=== PATIENT | female | born 1980 | race Caucasian/White ===

== ENCOUNTER 2018-12-30 18:12 | Inpatient (IN) | payer MEDICAID, OTHER ==
[~2018-12-30] VITALS: Ht 152.4 cm; Wt 79.0 kg
[~2018-12-30 18:12] MED LIST: FER325 PO
[2018-12-30 18:13] VITALS: Ht 152.4 cm; Wt 79.0 kg
[2018-12-30] MEDS ORDERED: ACETAMINOPHEN 500 MG TAB PO STA (21:02)
--- NOTE | 2018-12-30 21:11 | ERD ---
ER Documentation Chief Complaint Chief Complaint vag bleed since 12/13/18, pale, HPI 38-year-old female with history of heavy vaginal bleeding over the past several months. Has tried OCP with no alleviation of symptoms. Over the past 2 days patient's been going through approximately 9 pads per day also with mild lower abdominal pain. No nausea or vomiting. Did endorse a fever today but no URI symptoms. Denies any vaginal discharge. No diarrhea. No recent antibiotics. Patient feels weak as if she is going to pass out. No shortness of breath no chest pain. Patient does not have a history of transfusion. Patient that she had an ultrasound 2 weeks ago at an outside hospital which was negative per with the doctor told her. ROS All systems reviewed and are negative except as per history of present illness. Allergies Allergies: Coded Allergies: No Known Allergy (Unverified , 12/30/18) PMhx/Soc Medical and Surgical Hx: pt denies Medical Hx, pt denies Surgical Hx Hx Alcohol Use: No Hx Substance Use: No Hx Tobacco Use: No Smoking Status: Never smoker Physical Exam Vitals Vital Signs Date Temp Pulse Resp B/P (MAP) Pulse Ox O2 O2 Flow FiO2 Time Delivery Rate 12/30/18 102.2 139 22 117/76 100 Room Air 18:29 (90) 12/30/18 Nasal 18:29 Cannula 12/30/18 102.2 154 22 102/55 100 18:13 (71) Physical Exam Const: No acute distress Head: Atraumatic Eyes: Normal Conjunctiva ENT: Normal External Ears, Nose and Mouth. Neck: Full range of motion. No meningismus. Resp: Clear to auscultation bilaterally Cardio: Regular rate and rhythm, no murmurs Abd: Soft, non tender, non distended. Normal bowel sounds Skin: No petechiae or rashes Back: No midline or flank tenderness Ext: No cyanosis, or edema Neur: Awake and alert Psych: Normal Mood and Affect Pelvic Exam: Leather Stamper present Abdomen: Nontender External Genitalia: Normal Skin Speculum: Normal vaginal mucosa, normal cervical discharge small clot in cervical os no hemorrhage Bimanual: No adnexal masses or tenderness, No CMT Result Diagram: 12/30/18 1828 12/30/181827 Results 24 hrs Laboratory Tests Test 12/30/18 18:28 White Blood Count 16.5 10^3/ul Red Blood Count 1.40 10^6/ul Hemoglobin 4.1 g/dl Hematocrit 12.8 % Mean Corpuscular Volume 91.4 fl Mean Corpuscular Hemoglobin 29.3 pg Mean Corpuscular Hemoglobin Concent 32.0 g/dl Red Cell Distribution Width 17.4 % Platelet Count 218 10^3/UL Mean Platelet Volume 9.3 fl Immature Granulocytes % 1.500 % Neutrophils % % Segmented Neutrophils % (Manual) 74 % Band Neutrophils % (Manual) 2 % Lymphocytes % % Lymphocytes % (Manual) 22 % Monocytes % % Monocytes % (Manual) 1 % Eosinophils % % Basophils % % Basophils % (Manual) 1 % Nucleated Red Blood Cells % 2.6 /100WBC Immature Granulocytes # 0.240 10^3/ul Neutrophils # 10^3/ul Neutrophils # (Manual) 12.3 10^3/ul Band Neutrophils # 0.3 10^3/ul Lymphocytes (Manual) 3.6 10^3/ul Lymphocytes # 10^3/ul Monocytes # 10^3/ul Monocytes # (Manual) 0.1 10^3/ul Eosinophils # 10^3/ul Basophils # 10^3/ul Basophils # (Manual) 0.1 10^3/ul Nucleated Red Blood Cells # 10^3/ul Platelet Estimate NORMAL Polychromasia 3+ Anisocytosis 2+ Microcytosis 1+ Macrocytosis 1+ Prothrombin Time 14.4 Sec Prothrombin Time Ratio 1.1 INR International Normalized Ratio 1.11 Activated Partial Thromboplast Time 22.4 Sec Sodium Level 136 mmol/L Potassium Level 3.7 mmol/L Chloride Level 105 mmol/L Carbon Dioxide Level 24 mmol/L Anion Gap 7 Blood Urea Nitrogen 6 mg/dl Creatinine 0.65 mg/dl Est Glomerular Filtrat Rate mL/min > 60 mL/min Glucose Level 157 mg/dl Calcium Level 7.6 mg/dl Serum HCG, Qualitative NEGATIVE Procedures/MDM Patient presenting tachycardic and febrile. Normotensive. No obvious source of infection. No cervical discharge. No CMT. No URI symptoms. At this time patient is not septic given there is no great source of fever and patient's blood pressure is stable. Patient is significantly anemic hemoglobin of 4 this is likely the cause of her symptoms and her tachycardia. Patient was transfused O- and patient heart rate is appropriately responding to this. She is ultrasound also does not show any significant pathology including no evidence of infection such as tubo-ovarian abscess or PID. Patient is not . Consulted gynecology will follow the patient will admit to medicine for further work-up and transfusion. Will defer antibiotics at this time as patient is not septic and there is no source. Departure Condition: Stable CHIQUITA HARDING MD Dec 30, 2018 21:11
[2018-12-30] MEDS ORDERED: ONDANSETRON 4 MG INJ IV STA (21:14)
[2018-12-30] MEDS ORDERED: DOCUSATE SODIUM 100 MG CAP PO PRN (21:30)
[2018-12-30] MEDS ORDERED: NACL 0.9% 3 ML SYG IV SCH (21:30)
[2018-12-30] MEDS ORDERED: FUROSEMIDE 20 MG INJ IV PRN (21:30)
[2018-12-30] MEDS ORDERED: ONDANSETRON 4 MG INJ IV PRN (21:30)
[2018-12-30] MEDS ORDERED: ACETAMINOPHEN 325 MG TAB PO PRN (21:30)
[2018-12-30] MEDS ORDERED: BISACODYL (EC) 5 MG TAB PO PRN (21:30)
--- NOTE | 2018-12-30 21:40 | HP ---
Date/Time of Note Date/Time of Note DATE: 12/30/18 TIME: 21:35 Assessment/Plan VTE Prophylaxis SCD applied (from Nsg): Yes Pharmacological prophylaxis: NA/contraindicated Pharm contraindication: low risk/ambulating Lines/Catheters IV Catheter Type (from Nrsg): Saline Lock Assessment/Plan Hospital Course This is a 38-year-old female being admitted to the telemetry floor for: #1 symptomatic anemia: Secondary to vaginal bleeding. Do not have a previous baseline hemoglobin but at this time the goal will be to transfuse above 8. Patient did present tachycardic and febrile. There was no source of infection at the current time. She was ordered for 3 units of PRBC. Her heart rate has shown improvement with the blood transfusion. We will continue to monitor the patient on telemetry. Repeat CBC after her transfusions are completed. Check iron stores. Vaginal ultrasound. OB has been consulted by the emergency department. #2 systemic inflammatory response syndrome: Patient did present febrile and tachycardic. No overt source of infection has been found. This possibly could be secondary to her anemia/vaginal bleed, nonetheless I will check blood cultures x2 and check a lactic acid level for completeness sake given her temperature of 102.2. #3 vaginal bleeding: We will obtain a vaginal ultrasound to further evaluate. OB has been consulted by the ED #4 obesity: We will check hemoglobin A 1C, lipid panel, TSH #5 DVT GI prophylaxis: SCDs, no GI prophylaxis indicated Further treatment strategy will be implemented as per the clinical course. Result Diagram: 12/30/188 12/30/18 1828 Results 24hrs Laboratory Tests Test 12/30/18 18:28 White Blood Count 16.5 H Red Blood Count 1.40 L Hemoglobin 4.1 *L Hematocrit 12.8 L Mean Corpuscular Volume 91.4 Mean Corpuscular Hemoglobin 29.3 Mean Corpuscular Hemoglobin Concent 32.0 Red Cell Distribution Width 17.4 H Platelet Count 218 Mean Platelet Volume 9.3 Immature Granulocytes % 1.500 H Neutrophils % Segmented Neutrophils % (Manual) 74 Band Neutrophils % (Manual) 2 Lymphocytes % Lymphocytes % (Manual) 22 Monocytes % Monocytes % (Manual) 1 Eosinophils % Basophils % Basophils % (Manual) 1 Nucleated Red Blood Cells % 2.6 H Immature Granulocytes # 0.240 H Neutrophils # Neutrophils # (Manual) 12.3 H Band Neutrophils # 0.3 Lymphocytes (Manual) 3.6 H Lymphocytes # Monocytes # Monocytes # (Manual) 0.1 L Eosinophils # Basophils # Basophils # (Manual) 0.1 H Nucleated Red Blood Cells # Platelet Estimate NORMAL Polychromasia 3+ Anisocytosis 2+ Microcytosis 1+ Macrocytosis 1+ Prothrombin Time 14.4 Prothrombin Time Ratio 1.1 INR International Normalized Ratio 1.11 Activated Partial Thromboplast Time 22.4 L Sodium Level 136 Potassium Level 3.7 Chloride Level 105 Carbon Dioxide Level 24 Anion Gap 7 Blood Urea Nitrogen 6 L Creatinine 0.65 Est Glomerular Filtrat Rate mL/min > 60 Glucose Level 157 Calcium Level 7.6 L Serum HCG, Qualitative NEGATIVE HPI/ROS Admit Date/Time Admit Date/Time Hx of Present Illness Chief complaint: Heavy vaginal bleeding, lower abdominal pain, fever x1 day This is a 38-year-old female with a history of heavy vaginal bleeding over the last 2 months who presented to the emergency department with symptoms of abdominal pain but increased vaginal bleeding. Patient reports that over the last 2 months she started having increased vaginal bleeding. Prior to that her periods had been regular and her bleeding has been normal. She did not seek care for this and was started on OCPs but it has not helped with her bleeding. She also reports a fever that started occurring yesterday. She denies any nausea vomiting or diarrhea. She denies any cough. She did report some burning when she urinates. Denies any chest pain. She has not had a blood transfusion in the past. She also had an vaginal ultrasound at outside hospital and apparently was told that it was normal. Allergies: NKDA Medications: OCP ROS Const: As per HPI Eyes : No pain discharge or redness or change in visual acuity ENT: No pain, sore throat, congestion, congestion, dysphagia or discharge Respiratory: No shortness of breath, cough, sputum, wheezing, or pleuritic pain Cardiovascular: No chest pain, palpitation, PND, or edema GI : no change in appetite, abdominal pain, nausea, vomiting, diarrhea, constipation, or change in the color his stool Genitourinary: As per HPI Musculoskeletal: No joint pain, back pain, neck pain, restricted range of motion in neck or joints Skin: No rash, bruising or hives Neuro: No headache, dizziness, syncope, seizure, focal weakness Endocrine: No polyuria, polydipsia, temperature intolerance Psych: No hallucination, depression, anxiety or suicidal ideation PMH/Family/Social Past Medical History Medical History: no pertinent history Medications Current Medications IV Flush (NS 3 ml) 3 ml PER PROTOCOL IV ; Start 12/30/18 at 21:30 Ondansetron HCl (Zofran Inj) 4 mg Q6H PRN IV NAUSEA/VOMITING; Start 12/30/18 at 21:30 Acetaminophen (Tylenol Tab) 650 mg Q6H PRN PO .PAIN 1-3 OR TEMP; Start 12/30/18 at 21:30 Docusate Sodium (Colace) 100 mg Q12H PRN PO .CONSTIPATION; Start 12/30/18 at 21:30 Bisacodyl (Dulcolax) 5 mg DAILY PRN PO .CONSTIPATION; Start 12/30/18 at 21:30 Furosemide (Lasix) 20 mg ONCE PRN IV AFTER 2ND UNIT OF BLOOD; Start 12/30/18 at 21:30; Stop 12/31/18 at 21:29 Coded Allergies: No Known Allergy (Unverified , 12/30/18) Past Surgical History Past Surgical Hx: no surgical history Family History Significant Family History: no pertinent family hx Social History Alcohol Use: none Smoking Status: Never smoker Drug Use: none Exam/Review of Systems Vital Signs Vitals Vital Signs Date Temp Pulse Resp B/P (MAP) Pulse Ox O2 O2 Flow FiO2 Time Delivery Rate 12/30/18 102.2 139 22 117/76 100 Room Air 18:29 (90) Exam Exam General: Patient is a pleasant female currently lying in bed in no acute distress HEENT: Atraumatic, normocephalic. The pupils are equal, round and reactive. Extraocular motor are intact Neck: Supple with full range of motion. No rigidity or meningismus Chest: Nontender Lungs: Clear to auscultation bilaterally no crackles rales or wheezing Heart: Sinus tachycardia Abdomen: Soft , suprapubic tenderness to palpation, nondistended, bowel sounds are present. No guarding no rebound tenderness , No masses or organomegaly. No costovertebral temporal angle mass Extremities: Normal to inspection, no edema no cyanosis Neurologic: Normal mental status, speech normal, cranial nerves II through XII are intact, motor and sensory are intact, Additional Comments PROCEDURE: US Pelvis. CLINICAL INDICATION: Vaginal bleeding. TECHNIQUE: Multiple sonographic images of the pelvis were obtained utilizing a transabdominal technique. No transvaginal images were presented. The images were reviewed on a PACS workstation. COMPARISON: None. FINDINGS: Uterus is grossly normal in size and contour. Uterine dimensions are 10.3 x 4.6 x 6.3 cm. There is a fluid collection in the fundal endometrial canal. There is no apparent decidual reaction around the fluid collection and the shape is completely atypical for gestational sac. No adnexal masses are grossly evident. There does not appear to be any large volume of free fluid in the pelvis. The endometrium appears unremarkable with a thickness of number. The right ovary appears normal and measures 2.1 x 1.6 x 1.5 cm. Blood flow is present. The left ovary is not identified. IMPRESSION: 2. Sonographically unremarkable right ovary. 3. Nonvisualization of the left ovary. RPTAT:AAJJ Physician Annabelle Date Time Electronically viewed and signed by Physician Annabelle on 12/30/2018 20:34 GW/ CC: CHIQUITA HARDING MD [id number] ADOLFO LIMA Dec 30, 2018 21:40
[2018-12-30] MEDS ORDERED: LORAZEPAM 2 MG INJ ONE (22:23)
[2018-12-30] MEDS ORDERED: IBUPROFEN 600 MG TAB PO ONE (22:30)
[2018-12-30] MEDS ORDERED: LORAZEPAM 2 MG INJ IV ONE (22:30)
[2018-12-30] MEDS: PIPER-TAZO 3.375 GM IV (PMX) 100 ML IVPB SCH (23:28)
[2018-12-30] MEDS ORDERED: VANCOMYCIN 1.5 GM/NS 250 ML 250 ML IVPB ONE (23:30)
[2018-12-30] MEDS ORDERED: VANCOMYCIN IV PER PHARMACY XX SCH (23:30)
[2018-12-31] VITALS (17 sets, daily range): BP systolic 87–108; BP diastolic 57–81; PULSE 103–130; RESP 18–34
[2018-12-31] MEDS ORDERED: SOD CHLORIDE 0.9% 1,000 ML IV ONE (01:30)
[2018-12-31] MEDS: PIPER-TAZO 3.375 GM IV (PMX) 100 ML IVPB SCH ×3 (06:18→18:05)
[2018-12-31] MEDS ORDERED: MAGNESIUM SULFATE 1 GM/D5W 100 ML IVPB ONE (07:00)
[2018-12-31] MEDS ORDERED: SOD CHLORIDE 0.9% 500 ML IV ONE (07:00)
--- NOTE | 2018-12-31 11:39 | CONS ---
DATE OF ADMISSION: 12/31/2018 DATE OF CONSULTATION: 12/31/2018 REASON FOR CONSULTATION: Tachycardia. REQUESTING PHYSICIAN: Dr. Lima from the hospitalist service. HISTORY OF PRESENT ILLNESS: Ms. Tautm is a 38-year-old female without significant past medical history who presented with per chart 2 months and per patient 2 weeks of heavy menstrual bleeding with associated weakness, dizziness. Patient had been started on oral contraceptive pills but continued to bleed. Upon arrival, temperature of 102.2, blood pressure 102/55, pulse 154, respiratory rate 22, O2 sat 100%. The patient's labs revealed white blood cell count 16.5, hemoglobin 4.1, platelet count of 218. Sodium 136, potassium 3.7, creatinine 0.6, BUN 6. Lactic acid 2.1, INR 1.1. UA negative. The patient underwent a pelvic ultrasound revealing a thickened endometrium measuring 2.4 cm. Mild pelvic free fluid. A chest x-ray that revealed no definite acute abnormalities and abdominal pelvic CT that revealed hyperdense material illuminating the endometrial canal compatible with clot, no mass or adenopathy, coarse increased interstitial markings, right lower lobe. The patient's electrocardiogram in chart reveals sinus tachycardia, rate 111, normal axis, NSSTWA's. The patient subsequently admitted to the ICU where she remains at this time with blood pressures 80s to 90s, pulses in the 110 to 120 range, sinus tachycardia. The patient denies chest pain, shortness of breath, abdominal pain. PAST MEDICAL HISTORY: As above in HPI. MEDICATIONS CURRENTLY IN HOSPITAL: 1. Vancomycin. 2. Fish oil 1gram b.i.d. 3. Zosyn. ALLERGIES: NO KNOWN DRUG ALLERGIES. SOCIAL HISTORY: No current tobacco, ETOH or illicit drug use. FAMILY HISTORY: No history of sudden cardiac or early CAD. REVIEW OF SYSTEMS: As above in HPI. CONSTITUTIONAL: Positive fevers, chills. PULMONARY: No current shortness of breath. CARDIOVASCULAR: Tachycardia. GASTROINTESTINAL: No vomiting. GENITOURINARY: Heavy vaginal bleeding. PSYCHIATRIC: No documented psych history. NEUROLOGIC: No documented CVA. ENDOCRINE: No documented history of diabetes mellitus. PHYSICAL EXAMINATION: VITAL SIGNS: Temperature 99.5, blood pressure 95/60, pulse 116, respiratory rate 20, satting 100%. GENERAL: The patient is alert, awake, in no acute distress. NECK: No jugular venous distention. CHEST: Fair air movement throughout. HEART: Tachycardic, regular rhythm, normal S1, S2, I/ systolic murmur, nondisplaced PMI. ABDOMEN: Positive bowel sounds, soft. EXTREMITIES: No significant pitting edema, 1+ pulses bilateral posterior tibial. LABORATORY DATA: Most recent from today, sodium 138, potassium 3.7, creatinine 0.7, BUN 7, AST 15, ALT 12. LDL 6, HDL 21. White count 12.1, hemoglobin 8.3 now, platelet count of 135. IMAGING STUDIES: As above in HPI. No further imaging studies for my review at this time. ECG: As above in HPI. No further electrocardiograms for my review at this time. IMPRESSION: 1. Tachycardia consistent with sinus tachycardia at this time in the setting of fevers, severe anemia, vaginal bleeding, pain likely etiology. 2. Abnormal electrocardiogram with nonspecific ST-T abnormalities. 3. Fevers. 4. Anemia. 5. Heavy menses vaginal bleeding. 6. Leukocytosis, mild. RECOMMENDATIONS: 1. At this time, we would maintain the patient on close monitoring in ICU or tele. 2. Continue IV fluid hydration. 3. Follow the patient's hemoglobin closely with further transfusions of packed RBCs as necessary. 4. Continue the patient's broad-spectrum antibiotics and follow up all culture data. 5. Will follow up patient's 2D echo done for assessment of ejection fraction, wall motion or any major abnormalities. 6. We will check a TSH to be sure subclinical hyperthyroidism is not contributing to any bouts of tachycardia in addition to fevers and anemia, treat patient's fevers aggressively. 7. Consider [facility] consultation. Thank you for allowing me to take part in the care of this patient. I will continue to follow along very closely with you with further recommendations to be made as the patient progresses through her inpatient hospital clinical course. Dictated By: REID PADRON/NTS Conf#: [id number] DID#: [id number] CC: JADE AWAN MD; ADOLFO LIMA MD;*EndCC* MTDD
[2018-12-31] MEDS: FISH OIL 1,000 MG CAP PO SCH ×2 (12:52→21:37)
[2018-12-31] MEDS: VANCOMYCIN 1 GM 250 ML IVPB SCH (13:09)
--- NOTE | 2018-12-31 14:08 | RADRPT ---
Echocardiogram Report Patient Name: IVANNA RECIOPatient ID: [id number] : 1980 (38y 2m)Study Date: 12/31/2018 10:05:21 AM Gender: FAccession #: [id number] Tech: [facility] Location: [facility] Ref.Physician: ADOLFO LIMA Height(Cm): 160 BSA: 1.87Weight(Kg): 78.9 Quality: AdequateOrder Physician: ADOLFO LIMA Account #: Procedures: Echocardiographic Report: Transthoracic echocardiogram with complete 2D, M-Mode, and doppler examination. Indications: Tachycardia. Measurements: 2D/M Mode Doppler Measurement Value Normal Range Measurement Value Normal Range LVIDd 2D 4.7 [ 3.8 - 5.2 ] cm AV Peak Oskar 1.4 [ 100.0 - 170.0 ] cm/sec LVIDs 2D 3.3 [ 2.2 - 3.5 ] cm AV Peak PG 7.0 [ 2.0 - 9.0 ] mmHg LVPWd 2D 0.9 [ 0.6 - 0.9 ] cm LVOT Peak Oskar 1.0 [ 70.0 - 110.0 ] cm/sec IVSd 2D 0.9 [ 0.6 - 0.9 ] cm LVOT Peak PG 4.0 [ 2.0 - 6.0 ] mmHg AoR Diam 2D 3.2 [ 2.3 - 3.1 ] cm Lat E` Oskar 0.2 [ 10.0 - 15.0 ] cm/sec EF 2D 55.3 [ 54.0 - 74.0 ] percent Med E` Oskar 0.1 cm/sec LA Dimen 2D 3.6 [ 2.7 - 3.8 ] cm TR Peak Oskar 2.6 [ 100.0 - 280.0 ] cm/sec TR Peak PG 27.0 mmHg PV Peak Oskar 0.9 [ 40.0 - 80.0 ] cm/sec PV Peak PG 4.0 mmHg RVSP 30.0 [ 10.0 - 36.0 ] mmHg RA Pressure 3.0 mmHg Findings: Left Ventricle: Normal left ventricular systolic function. Normal left ventricular cavity size. Normal left ventricular wall thickness. Ejection fraction is visually estimated at 55-60 %. Tissue Doppler/Mitral Doppler indices are indeterminate in this study due to the presence of tachycardia. Right Ventricle: Normal right ventricular size. Normal right ventricular systolic function. Left Atrium: The left atrium is normal in size. Right Atrium: The right atrium is normal in size. Atrial Septum: Normal atrial septum. Mitral Valve: Normal appearance and function of the mitral valve with trace physiologic regurgitation. Aortic Valve: No significant aortic stenosis or insufficiency. Normal trileaflet aortic valve structure. Tricuspid Valve: Normal appearance of the tricuspid valve. The estimated Peak RVSP is 30 mmHg. There is mild tricuspid regurgitation. Pulmonic Valve: Normal pulmonic valve appearance. No evidence of pulmonic regurgitation. Pericardium: Normal pericardium with no significant pericardial effusion. Aorta: Normal aortic root. IVC: Normal size and normal respiratory collapse consistent with normal right atrial pressure. Pulmonary Artery: Normal pulmonary artery size. Conclusions: Normal left ventricular systolic function. Normal left ventricular cavity size. Normal left ventricular wall thickness. Ejection fraction is visually estimated at 55-60 %. Tissue Doppler/Mitral Doppler indices are indeterminate in this study due to the presence of tachycardia. Normal appearance and function of the mitral valve with trace physiologic regurgitation. Normal appearance of the tricuspid valve. The estimated Peak RVSP is 30 mmHg. There is mild tricuspid regurgitation. Electronically Signed By: Ted Hassan 2018-12-31 14:07:19 PDT
--- NOTE | 2018-12-31 14:51 | PN ---
Date/Time of Note Date/Time of Note DATE: 12/31/18 TIME: 14:47 Assessment/Plan VTE Prophylaxis SCD applied (from Nsg): Yes Pharmacological prophylaxis: NA/contraindicated Pharm contraindication: other Lines/Catheters IV Catheter Type (from Nrsg): Saline Lock Assessment/Plan Hospital Course This is a 38-year-old female being admitted to the telemetry floor for: #1 symptomatic anemia: Secondary to vaginal bleeding. Baseline unknown, transfuse to goal above 8 Status post 3 units of blood with improvement Ultrasound shows thickened and heterogeneous endometrium measuring 2.4 cm could represent blood and blood clots, increased compared with the prior study. There is mild fluid within the endometrium. Gynecology has been consulted Monitor #2 systemic inflammatory response syndrome: Patient did present febrile and tachycardic. No overt source of infection has been found. This possibly could be secondary to her anemia/vaginal bleed, nonetheless I will check blood cultures x2 and check a lactic acid level for completeness sake given her temperature of 102.2. #3 obesity: A1c 5.5, TSH normal and cholesterol is low DVT GI prophylaxis: SCDs, no GI prophylaxis indicated Result Diagram: 12/31/1851712/31/1818 Results 24hrs Laboratory Tests Test 12/30/18 18:28 12/30/18 21:41 12/30/18 22:43 12/30/18 23:23 White Blood Count 16.5 H 6.0 # Red Blood Count 1.40 L 2.72 #L Hemoglobin 4.1 *L 7.6 #L Hematocrit 12.8 L 24.0 #L Mean Corpuscular 91.4 88.2 Volume Mean Corpuscular 29.3 27.9 L Hemoglobin Mean Corpuscular 32.0 31.7 L Hemoglobin Concent Red Cell 17.4 H 15.8 H Distribution Width Platelet Count 218 158 # Mean Platelet Volume 9.3 9.1 Immature 1.500 H 1.200 H Granulocytes % Neutrophils % 80.0 H Segmented 74 Neutrophils % (Manual) Band Neutrophils % 2 (Manual) Lymphocytes % 16.6 Lymphocytes % 22 (Manual) Monocytes % 2.0 Monocytes % (Manual) 1 Eosinophils % 0.0 Basophils % 0.2 Basophils % (Manual) 1 Nucleated Red Blood 2.6 H 4.7 H Cells % Immature 0.240 H 0.070 H Granulocytes # Neutrophils # 4.8 Neutrophils # 12.3 H (Manual) Band Neutrophils # 0.3 Lymphocytes (Manual) 3.6 H Lymphocytes # 1.0 Monocytes # 0.1 L Monocytes # (Manual) 0.1 L Eosinophils # 0.0 Basophils # 0.0 Basophils # (Manual) 0.1 H Nucleated Red Blood 0.3 H Cells # Platelet Estimate NORMAL Polychromasia 3+ Anisocytosis 2+ Microcytosis 1+ Macrocytosis 1+ Prothrombin Time 14.4 Prothrombin Time 1.1 Ratio INR International 1.11 Normalized Ratio Activated 22.4 L Partial Thromboplast Time Sodium Level 136 Potassium Level 3.7 Chloride Level 105 Carbon Dioxide Level 24 Anion Gap 7 Blood Urea Nitrogen 6 L Creatinine 0.65 Est Glomerular > 60 Filtrat Rate mL/min Glucose Level 157 Calcium Level 7.6 L Serum HCG, NEGATIVE Qualitative Lactic Acid Level 2.1 *H Iron Level 17 L Total Iron Binding 316 Capacity Percent Iron 5 L Saturation Ferritin 9.0 Urine Color RED Urine Clarity CLEAR Urine pH 8.0 Urine Specific 1.011 [place] Urine Ketones NEGATIVE Urine Nitrite NEGATIVE Urine Bilirubin NEGATIVE Urine Urobilinogen NEGATIVE Urine Leukocyte NEGATIVE Esterase Urine Hemoglobin NEGATIVE Urine Glucose NEGATIVE Urine Total Protein NEGATIVE Test 12/31/18 01:01 12/31/18 05:18 12/31/18 08:00 12/31/18 11:17 Lactic Acid Level 1.1 2.0 1.1 White Blood Count 12.1 #H Red Blood Count 2.90 L Hemoglobin 8.3 L Hematocrit 25.9 L Mean Corpuscular 89.3 Volume Mean Corpuscular 28.6 L Hemoglobin Mean Corpuscular 32.0 Hemoglobin Concent Red Cell 16.1 H Distribution Width Platelet Count 135 L Mean Platelet Volume 8.8 Immature 0.700 H Granulocytes % Neutrophils % 90.9 H Lymphocytes % 7.3 L Monocytes % 0.7 Eosinophils % 0.2 Basophils % 0.2 Nucleated Red Blood 1.5 H Cells % Immature 0.090 H Granulocytes # Neutrophils # 11.0 H Lymphocytes # 0.9 Monocytes # 0.1 L Eosinophils # 0.0 Basophils # 0.0 Nucleated Red Blood 0.2 H Cells # Sodium Level 138 Potassium Level 3.7 Chloride Level 111 H Carbon Dioxide Level 21 Anion Gap 6 Blood Urea Nitrogen 7 Creatinine 0.72 Est Glomerular > 60 Filtrat Rate mL/min Glucose Level 108 # Hemoglobin A1c 5.5 Calcium Level 6.9 L Magnesium Level 1.9 Total Bilirubin 0.4 Direct Bilirubin 0.00 Indirect Bilirubin 0.4 Aspartate Amino 15 Transf (AST/SGOT) Alanine 12 L Aminotransferase (AL T/SGPT) Alkaline Phosphatase 49 Total Protein 4.6 L Albumin 2.2 L Globulin 2.40 Albumin/Globulin 0.91 Ratio Triglycerides Level 319 H Cholesterol Level 91 L LDL Cholesterol, 6 Calculated HDL Cholesterol 21 L Cholesterol/HDL 4.3 Ratio Thyroid Stimulating 3.780 3.140 Hormone (TSH) Troponin I 0.034 Test 12/31/18 14:11 Lactic Acid Level 2.9 *H Subjective 24 Hr Interval Summary Constitutional: no complaints Exam/Review of Systems Exam Vitals Vital Signs Date Temp Pulse Resp B/P (MAP) Pulse Ox O2 O2 Flow FiO2 Time Delivery Rate 12/31/18 109 23 98/61 (73) 94 Room Air 13:00 12/31/18 98.8 12:00 Constitutional: alert Respiratory: clear to auscultation Cardiovascular: regular rate and rhythm Gastrointestinal: soft; No distended Musculoskeletal: nl extremities to inspection Results Results 24hrs Laboratory Tests Test 12/30/18 18:28 12/30/18 21:41 12/30/18 22:43 12/30/18 23:23 White Blood Count 16.5 H 6.0 # Red Blood Count 1.40 L 2.72 #L Hemoglobin 4.1 *L 7.6 #L Hematocrit 12.8 L 24.0 #L Mean Corpuscular 91.4 88.2 Volume Mean Corpuscular 29.3 27.9 L Hemoglobin Mean Corpuscular 32.0 31.7 L Hemoglobin Concent Red Cell 17.4 H 15.8 H Distribution Width Platelet Count 218 158 # Mean Platelet Volume 9.3 9.1 Immature 1.500 H 1.200 H Granulocytes % Neutrophils % 80.0 H Segmented 74 Neutrophils % (Manual) Band Neutrophils % 2 (Manual) Lymphocytes % 16.6 Lymphocytes % 22 (Manual) Monocytes % 2.0 Monocytes % (Manual) 1 Eosinophils % 0.0 Basophils % 0.2 Basophils % (Manual) 1 Nucleated Red Blood 2.6 H 4.7 H Cells % Immature 0.240 H 0.070 H Granulocytes # Neutrophils # 4.8 Neutrophils # 12.3 H (Manual) Band Neutrophils # 0.3 Lymphocytes (Manual) 3.6 H Lymphocytes # 1.0 Monocytes # 0.1 L Monocytes # (Manual) 0.1 L Eosinophils # 0.0 Basophils # 0.0 Basophils # (Manual) 0.1 H Nucleated Red Blood 0.3 H Cells # Platelet Estimate NORMAL Polychromasia 3+ Anisocytosis 2+ Microcytosis 1+ Macrocytosis 1+ Prothrombin Time 14.4 Prothrombin Time 1.1 Ratio INR International 1.11 Normalized Ratio Activated 22.4 L Partial Thromboplast Time Sodium Level 136 Potassium Level 3.7 Chloride Level 105 Carbon Dioxide Level 24 Anion Gap 7 Blood Urea Nitrogen 6 L Creatinine 0.65 Est Glomerular > 60 Filtrat Rate mL/min Glucose Level 157 Calcium Level 7.6 L Serum HCG, NEGATIVE Qualitative Lactic Acid Level 2.1 *H Iron Level 17 L Total Iron Binding 316 Capacity Percent Iron 5 L Saturation Ferritin 9.0 Urine Color RED Urine Clarity CLEAR Urine pH 8.0 Urine Specific 1.011 [place] Urine Ketones NEGATIVE Urine Nitrite NEGATIVE Urine Bilirubin NEGATIVE Urine Urobilinogen NEGATIVE Urine Leukocyte NEGATIVE Esterase Urine Hemoglobin NEGATIVE Urine Glucose NEGATIVE Urine Total Protein NEGATIVE Test 12/31/18 01:01 12/31/18 05:18 12/31/18 08:00 12/31/18 11:17 Lactic Acid Level 1.1 2.0 1.1 White Blood Count 12.1 #H Red Blood Count 2.90 L Hemoglobin 8.3 L Hematocrit 25.9 L Mean Corpuscular 89.3 Volume Mean Corpuscular 28.6 L Hemoglobin Mean Corpuscular 32.0 Hemoglobin Concent Red Cell 16.1 H Distribution Width Platelet Count 135 L Mean Platelet Volume 8.8 Immature 0.700 H Granulocytes % Neutrophils % 90.9 H Lymphocytes % 7.3 L Monocytes % 0.7 Eosinophils % 0.2 Basophils % 0.2 Nucleated Red Blood 1.5 H Cells % Immature 0.090 H Granulocytes # Neutrophils # 11.0 H Lymphocytes # 0.9 Monocytes # 0.1 L Eosinophils # 0.0 Basophils # 0.0 Nucleated Red Blood 0.2 H Cells # Sodium Level 138 Potassium Level 3.7 Chloride Level 111 H Carbon Dioxide Level 21 Anion Gap 6 Blood Urea Nitrogen 7 Creatinine 0.72 Est Glomerular > 60 Filtrat Rate mL/min Glucose Level 108 # Hemoglobin A1c 5.5 Calcium Level 6.9 L Magnesium Level 1.9 Total Bilirubin 0.4 Direct Bilirubin 0.00 Indirect Bilirubin 0.4 Aspartate Amino 15 Transf (AST/SGOT) Alanine 12 L Aminotransferase (AL T/SGPT) Alkaline Phosphatase 49 Total Protein 4.6 L Albumin 2.2 L Globulin 2.40 Albumin/Globulin 0.91 Ratio Triglycerides Level 319 H Cholesterol Level 91 L LDL Cholesterol, 6 Calculated HDL Cholesterol 21 L Cholesterol/HDL 4.3 Ratio Thyroid Stimulating 3.780 3.140 Hormone (TSH) Troponin I 0.034 Test 12/31/18 14:11 Lactic Acid Level 2.9 *H Medications Medication Current Medications IV Flush (NS 3 ml) 3 ml PER PROTOCOL IV ; Start 12/30/18 at 21:30 Ondansetron HCl (Zofran Inj) 4 mg Q6H PRN IV NAUSEA/VOMITING; Start 12/30/18 at 21:30 Acetaminophen (Tylenol Tab) 650 mg Q6H PRN PO .PAIN 1-3 OR TEMP; Start 12/30/18 at 21:30 Docusate Sodium (Colace) 100 mg Q12H PRN PO .CONSTIPATION; Start 12/30/18 at 21:30 Bisacodyl (Dulcolax) 5 mg DAILY PRN PO .CONSTIPATION; Start 12/30/18 at 21:30 Furosemide (Lasix) 20 mg ONCE PRN IV AFTER 2ND UNIT OF BLOOD; Start 12/30/18 at 21:30; Stop 12/31/18 at 21:29 Vancomycin HCl (Vanco Iv Per Pharmacy) VANCOMYCIN PER PHARMACY PER PROTOCOL XX ; Start 12/30/18 at 23:30 Piperacillin Sod/ Tazobactam Sod 100 ml @ 200 mls/hr Q6 IVPB Last administered on 12/31/18at 12:53; Admin Dose 200 MLS/HR; Start 12/31/18 at 00:00 Vancomycin HCl 250 ml @ 125 mls/hr Q12H IVPB Last administered on 12/31/18at 13:09; Admin Dose 125 MLS/HR; Start 12/31/18 at 11:30 Miscellaneous Information (*Rx Drug Level Order Reminder*) VANCOMYCIN TROUGH LEVEL 1030 ONCE XX ; Start 01/01/19 at 10:30; Stop 01/01/19 at 10:31 Fish Oil (Fish Oil) 1,000 mg BID PO Last administered on 12/31/18at 12:52; Admin Dose 1,000 MG; Start 12/31/18 at 09:00 ROBE BLUE Dec 31, 2018 14:51
--- NOTE | 2018-12-31 16:12 | QN ---
Documentation Comment 38 yo with VB currently not actively bleeding She has received blood transfusion She is in ICU for observation and monitoring US thickened Endometrium Patient is not NPO HB 8 VS stable tachycardia Gen NAD Abd soft nt nD Genitalia 1-2 cc clots in vaginal vault --->Given the circumstances and the fact that she is not actively bleeding she will need a D&C&hysteroscopy when stable or as outpatient to R/op Endometrial cancer or Gyperplasia -->Any question ,please contact the paper making machine operator laborist LEILA PANCHAL M.D. Dec 31, 2018 16:12
[2019-01-01] VITALS (18 sets, daily range): BP systolic 90–113; BP diastolic 61–77; PULSE 85–120; RESP 18–27
[2019-01-01] MEDS: VANCOMYCIN 1 GM 250 ML IVPB SCH ×2 (00:17→11:57)
[2019-01-01] MEDS: PIPER-TAZO 3.375 GM IV (PMX) 100 ML IVPB SCH ×3 (00:18→11:18)
[2019-01-01] MEDS ORDERED: SOD CHLORIDE 0.9% 250 ML IV* ONE (00:35)
[2019-01-01] MEDS: FISH OIL 1,000 MG CAP PO SCH ×2 (08:37→23:47)
--- NOTE | 2019-01-01 11:06 | CONS ---
Assessment/Plan Assessment/Plan Hospital Course (Demo Recall) IMPRESSION: 1. Tachycardia consistent with sinus tachycardia at this time in the setting of fevers, severe anemia, vaginal bleeding, pain likely etiology.- currently improved s/p transfussions with IVF and treatment of fevers. Echo 12/31 EF 55- 60/MR/TR 2. Abnormal electrocardiogram with nonspecific ST-T abnormalities. 3. Fevers. 4. Anemia. 5. Heavy menses vaginal bleeding. 6. Leukocytosis, mild. Recc: -IN ICU, ok for tele -Follow [facility] -ongoing [employer] eval -Continue abx's and f/u cx data -treat fevers Consultation Date/Type/Reason Admit Date/Time Dec 31, 2018 at 06:30 Initial Consult Date 12/31/18 Type of Consult Cardiology Reason for Consultation tachycardia Requesting Provider: ADOLFO LIMA Date/Time of Note DATE: 01/01/19 TIME: 11:04 Exam/Review of Systems Vital Signs Vitals Vital Signs Date Temp Pulse Resp B/P (MAP) Pulse Ox O2 O2 Flow FiO2 Time Delivery Rate 01/01/19 106 19 104/64 100 Room Air 10:00 (77) 01/01/19 97.6 08:00 Intake and Output 12/31/18 12/31/18 01/01/19 1515:00 23:00 07:00 IntakeIntake Total 1640 ml 1210 ml 600 ml OutputOutput Total 5 ml 612 ml 700 ml BalanceBalance 1635 ml 598 ml -100 ml Exam Exam Review of Systems: CONSTITUTIONAL: No fevers, chills. PULMONARY: No sob CARDIOVASCULAR: No chest pain/palpitations GASTROINTESTINAL: No nausea/vomiting. GENITOURINARY: No hematuria/dysuria. MUSCULOSKELETAL: No myagias/arthalgias. PSYCHIATRIC: The patient denies depression. NEUROLOGIC: No weakness Constitutional: alert Psych: no complaints Head: normocephalic ENMT: mucosa pink and moist Neck: supple, jvd (8 cm water) Respiratory: clear to auscultation Cardiovascular: regular rate and rhythm Gastrointestinal: soft, non-tender Musculoskeletal: muscle tone (normal) Extremities: edema (none) Labs Result Diagram: 01/01/19 0519 01/01/19 0519 Results 24hrs Laboratory Tests Test 12/31/18 11:17 7/28/19 14:11 12/31/18 23:25 01/01/19 05:19 Troponin I 0.034 0.030 Thyroid Stimulating 3.140 Hormone (TSH) Lactic Acid Level 2.9 *H White Blood Count 8.2 # 6.9 Red Blood Count 2.68 L 3.03 L Hemoglobin 7.6 L 8.5 L Hematocrit 23.6 L 26.7 L Mean Corpuscular 88.1 88.1 Volume Mean Corpuscular 28.4 L 28.1 L Hemoglobin Mean Corpuscular 32.2 31.8 L Hemoglobin Concent Red Cell 16.4 H 16.0 H Distribution Width Platelet Count 154 147 Mean Platelet Volume 8.5 9.0 Immature 0.500 H 0.400 Granulocytes % Neutrophils % 68.6 67.9 Lymphocytes % 23.8 20.9 Monocytes % 4.9 7.8 Eosinophils % 1.7 2.6 Basophils % 0.5 0.4 Nucleated Red Blood 1.5 H 1.4 H Cells % Immature 0.040 H 0.030 Granulocytes # Neutrophils # 5.7 4.7 Lymphocytes # 2.0 1.5 Monocytes # 0.4 0.5 Eosinophils # 0.1 0.2 Basophils # 0.0 0.0 Nucleated Red Blood 0.1 H 0.1 H Cells # Sodium Level 138 Potassium Level 4.0 Chloride Level 110 Carbon Dioxide Level 26 Anion Gap 2 L Blood Urea Nitrogen 5 L Creatinine 0.73 Est Glomerular > 60 Filtrat Rate mL/min Glucose Level 101 Calcium Level 7.5 L Total Bilirubin 0.4 Direct Bilirubin 0.00 Indirect Bilirubin 0.4 Aspartate Amino 16 Transf (AST/SGOT) Alanine 24 Aminotransferase (AL T/SGPT) Alkaline Phosphatase 55 Total Protein 4.5 L Albumin 2.2 L Globulin 2.30 Albumin/Globulin 0.95 Ratio Medications Medications Current Medications IV Flush (NS 3 ml) 3 ml PER PROTOCOL IV ; Start 12/30/18 at 21:30 Ondansetron HCl (Zofran Inj) 4 mg Q6H PRN IV NAUSEA/VOMITING; Start 12/30/18 at 21:30 Acetaminophen (Tylenol Tab) 650 mg Q6H PRN PO .PAIN 1-3 OR TEMP; Start 12/30/18 at 21:30 Docusate Sodium (Colace) 100 mg Q12H PRN PO .CONSTIPATION; Start 12/30/18 at 21:30 Bisacodyl (Dulcolax) 5 mg DAILY PRN PO .CONSTIPATION; Start 12/30/18 at 21:30 Vancomycin HCl (Vanco Iv Per Pharmacy) VANCOMYCIN PER PHARMACY PER PROTOCOL XX ; Start 12/30/18 at 23:30 Piperacillin Sod/ Tazobactam Sod 100 ml @ 200 mls/hr Q6 IVPB Last administered on 01/01/19at 05:23; Admin Dose 200 MLS/HR; Start 12/31/18 at 00:00 Vancomycin HCl 250 ml @ 125 mls/hr Q12H IVPB Last administered on 01/01/19at 00:17; Admin Dose 125 MLS/HR; Start 12/31/18 at 11:30 Fish Oil (Fish Oil) 1,000 mg BID PO Last administered on 01/01/19at 08:37; Admin Dose 1,000 MG; Start 12/31/18 at 09:00 REID REYNOLDS Jan 01, 2019 11:06
--- NOTE | 2019-01-01 13:25 | RADRPT ---
Vent Rate: 98 bpm RR Interval: [address] Interval: 140 msec QRS Duration: 79 msec QT Interval: 361 msec QTC Interval: 461 msec P-R-T [place]: 47 - 53 - 41 degrees Sinus rhythm...normal P axis, V-rate 50- 99 Electronically Signed By: Ramírez Nance
--- NOTE | 2019-01-01 14:35 | PN ---
Date/Time of Note Date/Time of Note DATE: 01/01/19 TIME: 14:30 Assessment/Plan VTE Prophylaxis Risk score (from Ns)>0 risk: 2 SCD applied (from Ns): Yes Pharmacological prophylaxis: NA/contraindicated Pharm contraindication: bleeding Lines/Catheters IV Catheter Type (from [facility]): Saline Lock Assessment/Plan Hospital Course This is a 38-year-old female being admitted to the telemetry floor for: #1 symptomatic anemia: Secondary to vaginal bleeding. Vaginal bleeding has decreased Status post 5 units Ultrasound shows thickened and heterogeneous endometrium measuring 2.4 cm could represent blood and blood clots, increased compared with the prior study. There is mild fluid within the endometrium. Gynecology consultation appreciated, patient will ultimately require a D&C which could potentially be done as an outpatient Patient's dizziness has improved but is still tachycardic Monitor overnight #2 SIRS-reactive No evidence of infection DC antibiotics #3 obesity: A1c 5.5, TSH normal and cholesterol is low DVT GI prophylaxis: SCDs, no GI prophylaxis indicated DC planning: Patient with persistent tachycardia and mild dizziness although both have improved, transfer to visual associate overnight, anticipate DC home tomorrow if gynecology is not planning any further procedures during this hospitalization Result Diagram: 01/01/1951801/01/19518 Results 24hrs Laboratory Tests Test 12/31/18 23:25 01/01/19 05:19 01/01/19 10:21 White Blood Count 8.2 # 6.9 Red Blood Count 2.68 L 3.03 L Hemoglobin 7.6 L 8.5 L Hematocrit 23.6 L 26.7 L Mean Corpuscular Volume 88.1 88.1 Mean Corpuscular Hemoglobin 28.4 L 28.1 L Mean Corpuscular Hemoglobin Concent 32.2 31.8 L Red Cell Distribution Width 16.4 H 16.0 H Platelet Count 154 147 Mean Platelet Volume 8.5 9.0 Immature Granulocytes % 0.500 H 0.400 Neutrophils % 68.6 67.9 Lymphocytes % 23.8 20.9 Monocytes % 4.9 7.8 Eosinophils % 1.7 2.6 Basophils % 0.5 0.4 Nucleated Red Blood Cells % 1.5 H 1.4 H Immature Granulocytes # 0.040 H 0.030 Neutrophils # 5.7 4.7 Lymphocytes # 2.0 1.5 Monocytes # 0.4 0.5 Eosinophils # 0.1 0.2 Basophils # 0.0 0.0 Nucleated Red Blood Cells # 0.1 H 0.1 H Sodium Level 138 Potassium Level 4.0 Chloride Level 110 Carbon Dioxide Level 26 Anion Gap 2 L Blood Urea Nitrogen 5 L Creatinine 0.73 Est Glomerular Filtrat Rate mL/min > 60 Glucose Level 101 Calcium Level 7.5 L Total Bilirubin 0.4 Direct Bilirubin 0.00 Indirect Bilirubin 0.4 Aspartate Amino Transf (AST/SGOT) 16 Alanine Aminotransferase (ALT/SGPT) 24 Alkaline Phosphatase 55 Troponin I 0.030 Total Protein 4.5 L Albumin 2.2 L Globulin 2.30 Albumin/Globulin Ratio 0.95 Vancomycin Level Trough 6.7 L Subjective 24 Hr Interval Summary Constitutional: no complaints Exam/Review of Systems Exam Vitals Vital Signs Date Temp Pulse Resp B/P (MAP) Pulse Ox O2 O2 Flow FiO2 Time Delivery Rate 01/01/19 91 21 111/75 100 Room Air 13:00 (87) 01/01/19 98.4 11:00 Intake and Output 12/31/18 12/31/18 01/01/19 1515:00 23:00 07:00 IntakeIntake Total 1640 ml 1210 ml 600 ml OutputOutput Total 5 ml 612 ml 700 ml BalanceBalance 1635 ml 598 ml -100 ml Constitutional: alert Respiratory: clear to auscultation Cardiovascular: regular rate and rhythm Gastrointestinal: soft Musculoskeletal: nl extremities to inspection Results Results 24hrs Laboratory Tests Test 12/31/18 23:25 01/01/19 05:19 01/01/19 10:21 White Blood Count 8.2 # 6.9 Red Blood Count 2.68 L 3.03 L Hemoglobin 7.6 L 8.5 L Hematocrit 23.6 L 26.7 L Mean Corpuscular Volume 88.1 88.1 Mean Corpuscular Hemoglobin 28.4 L 28.1 L Mean Corpuscular Hemoglobin Concent 32.2 31.8 L Red Cell Distribution Width 16.4 H 16.0 H Platelet Count 154 147 Mean Platelet Volume 8.5 9.0 Immature Granulocytes % 0.500 H 0.400 Neutrophils % 68.6 67.9 Lymphocytes % 23.8 20.9 Monocytes % 4.9 7.8 Eosinophils % 1.7 2.6 Basophils % 0.5 0.4 Nucleated Red Blood Cells % 1.5 H 1.4 H Immature Granulocytes # 0.040 H 0.030 Neutrophils # 5.7 4.7 Lymphocytes # 2.0 1.5 Monocytes # 0.4 0.5 Eosinophils # 0.1 0.2 Basophils # 0.0 0.0 Nucleated Red Blood Cells # 0.1 H 0.1 H Sodium Level 138 Potassium Level 4.0 Chloride Level 110 Carbon Dioxide Level 26 Anion Gap 2 L Blood Urea Nitrogen 5 L Creatinine 0.73 Est Glomerular Filtrat Rate mL/min > 60 Glucose Level 101 Calcium Level 7.5 L Total Bilirubin 0.4 Direct Bilirubin 0.00 Indirect Bilirubin 0.4 Aspartate Amino Transf (AST/SGOT) 16 Alanine Aminotransferase (ALT/SGPT) 24 Alkaline Phosphatase 55 Troponin I 0.030 Total Protein 4.5 L Albumin 2.2 L Globulin 2.30 Albumin/Globulin Ratio 0.95 Vancomycin Level Trough 6.7 L Medications Medication Current Medications IV Flush (NS 3 ml) 3 ml PER PROTOCOL IV ; Start 12/30/18 at 21:30 Ondansetron HCl (Zofran Inj) 4 mg Q6H PRN IV NAUSEA/VOMITING; Start 12/30/18 at 21:30 Acetaminophen (Tylenol Tab) 650 mg Q6H PRN PO .PAIN 1-3 OR TEMP; Start 12/30/18 at 21:30 Docusate Sodium (Colace) 100 mg Q12H PRN PO .CONSTIPATION; Start 12/30/18 at 21:30 Bisacodyl (Dulcolax) 5 mg DAILY PRN PO .CONSTIPATION; Start 12/30/18 at 21:30 Vancomycin HCl (Vanco Iv Per Pharmacy) VANCOMYCIN PER PHARMACY PER PROTOCOL XX ; Start 12/30/18 at 23:30 Piperacillin Sod/ Tazobactam Sod 100 ml @ 200 mls/hr Q6 IVPB Last administered on 01/01/19at 11:18; Admin Dose 200 MLS/HR; Start 12/31/18 at 00:00 Fish Oil (Fish Oil) 1,000 mg BID PO Last administered on 01/01/19at 08:37; Admin Dose 1,000 MG; Start 12/31/18 at 09:00 Vancomycin HCl 250 ml @ 125 mls/hr Q8H IVPB ; Start 01/01/19 at 20:00 Miscellaneous Information (*Rx Drug Level Order Reminder*) VANCO TROUGH @ 1,900 1900 ONCE XX ; Start 01/02/19 at 19:00; Stop 01/02/19 at 19:01 ROBE BLUE Jan 01, 2019 14:35
[2019-01-01] MEDS ORDERED: VANCOMYCIN 1 GM 250 ML IVPB SCH (20:00)
[2019-01-02] VITALS (16 sets, daily range): BP systolic 95–122; BP diastolic 8–78; PULSE 89–122; RESP 15–22
[2019-01-02] MEDS: FISH OIL 1,000 MG CAP PO SCH ×2 (08:38→21:27)
--- NOTE | 2019-01-02 09:32 | CONS ---
Consult Date/Type/Reason Admit Date/Time Dec 31, 2018 at 06:30 Initial Consult Date Requesting Provider: ADOLFO LIMA Date/Time of Note DATE: 01/02/19 TIME: 09:30 Subjective NO acute events - pt comfortable - BP in good range -no CP now. Sinus tach better now - rate controlled in 90s. ROS: No fever, no chills, no nausea, no vomiting, no diarrhea/constipation No recent weight changes No chest pain, no PND, no orthopnea - improved abd pain No dizziness, blurred vision No thirst, no heat or cold intolerance Objective Vitals Vital Signs Date Temp Pulse Resp B/P (MAP) Pulse Ox O2 O2 Flow FiO2 Time Delivery Rate 01/02/19 98.4 94 20 98/58 (71) 99 07:24 01/02/19 Room Air 04:30 Intake and Output 01/01/19 01/01/19 01/02/19 1515:00 23:00 07:00 IntakeIntake Total 1170 ml OutputOutput Total 300 ml BalanceBalance 870 ml Exam General: WN/WD/NAD, AOx 3 HEENT: Unicetric/atraumatic/EOMI (follows commands) NECK: JVD elevated, no thyromegaly Lymph: no lymphadenopathy HEART: regular with no S3, II/ systolic murmur at apex LUNGS: Coarse sounds ABD: soft, NT, ND, +BS : Intact Neuro: non focal SKIN: chronic changes EXT: trace edema Results/Medications Result Diagram: 01/02/19 0513 01/02/19 0513 Results 24 hrs Laboratory Tests Test 01/01/19 10:21 01/02/19 05:13 Vancomycin Level Trough 6.7 L White Blood Count 6.9 Red Blood Count 3.03 L Hemoglobin 8.3 L Hematocrit 26.5 L Mean Corpuscular Volume 87.5 Mean Corpuscular Hemoglobin 27.4 L Mean Corpuscular Hemoglobin Concent 31.3 L Red Cell Distribution Width 15.7 H Platelet Count 167 Mean Platelet Volume 9.4 Immature Granulocytes % 0.400 Neutrophils % 67.2 Lymphocytes % 23.4 Monocytes % 7.4 Eosinophils % 1.3 Basophils % 0.3 Nucleated Red Blood Cells % 0.9 H Immature Granulocytes # 0.030 Neutrophils # 4.6 Lymphocytes # 1.6 Monocytes # 0.5 Eosinophils # 0.1 Basophils # 0.0 Nucleated Red Blood Cells # 0.1 H Sodium Level 138 Potassium Level 3.5 Chloride Level 106 Carbon Dioxide Level 27 Anion Gap 5 Blood Urea Nitrogen 8 Creatinine 0.75 Est Glomerular Filtrat Rate mL/min > 60 Glucose Level 97 Calcium Level 8.1 L Medications Current Medications IV Flush (NS 3 ml) 3 ml PER PROTOCOL IV ; Start 12/30/18 at 21:30 Ondansetron HCl (Zofran Inj) 4 mg Q6H PRN IV NAUSEA/VOMITING; Start 12/30/18 at 21:30 Acetaminophen (Tylenol Tab) 650 mg Q6H PRN PO .PAIN 1-3 OR TEMP; Start 12/30/18 at 21:30 Docusate Sodium (Colace) 100 mg Q12H PRN PO .CONSTIPATION; Start 12/30/18 at 21:30 Bisacodyl (Dulcolax) 5 mg DAILY PRN PO .CONSTIPATION; Start 12/30/18 at 21:30 Fish Oil (Fish Oil) 1,000 mg BID PO Last administered on 01/02/19at 08:38; Admin Dose 1,000 MG; Start 12/31/18 at 09:00 Assessment/Plan Hospital Course (Demo Recall) 1. Tachycardia consistent with sinus tachycardia at this time in the setting of fevers, severe anemia, vaginal bleeding, pain likely etiology.- currently improved s/p transfussions with IVF and treatment of fevers. Echo 12/31 EF 55- 60/MR/TR - now in sinus at 90s - stable 2. Abnormal electrocardiogram with nonspecific ST-T abnormalities - doubt ischemia. 3. Fevers - resolved. 4. Anemia - H/H at 8.3 - will follow 5. Heavy menses vaginal bleedin- defer to [employer]. . 6. Leukocytosis, mild. AILYN MA MD Jan 02, 2019 09:32
--- NOTE | 2019-01-02 13:11 | PN ---
Date/Time of Note Date/Time of Note DATE: 01/02/19 TIME: 12:54 Assessment/Plan VTE Prophylaxis Risk score (from [place])>0 risk: 0 [place] [facility] [place] Pharmacological prophylaxis: other Pharm contraindication: bleeding Lines/Catheters IV Catheter Type (from [facility]): [place] Assessment/Plan Assessment/Plan 1. Abnormal uterine bleeding, prevera, possible D&C today 2. Anemia from vaginal bleeding, s/p transfusion, iv iron, follow up with H/H 3. DVT GI prophylaxis: SCDs, Result Diagram: 01/02/1951201/02/19512 Results 24hrs Laboratory Tests Test 01/02/19 05:13 White Blood Count 6.9 Red Blood Count 3.03 L Hemoglobin 8.3 L Hematocrit 26.5 L Mean Corpuscular Volume 87.5 Mean Corpuscular Hemoglobin 27.4 L Mean Corpuscular Hemoglobin Concent 31.3 L Red Cell Distribution Width 15.7 H Platelet Count 167 Mean Platelet Volume 9.4 Immature Granulocytes % 0.400 Neutrophils % 67.2 Lymphocytes % 23.4 Monocytes % 7.4 Eosinophils % 1.3 Basophils % 0.3 Nucleated Red Blood Cells % 0.9 H Immature Granulocytes # 0.030 Neutrophils # 4.6 Lymphocytes # 1.6 Monocytes # 0.5 Eosinophils # 0.1 Basophils # 0.0 Nucleated Red Blood Cells # 0.1 H Sodium Level 138 Potassium Level 3.5 Chloride Level 106 Carbon Dioxide Level 27 Anion Gap 5 Blood Urea Nitrogen 8 Creatinine 0.75 Est Glomerular Filtrat Rate mL/min > 60 Glucose Level 97 Calcium Level 8.1 L Subjective 24 Hr Interval Summary Free Text/Dictation vaginal bleeding with clots last night, slowing down but still bleeding today Exam/Review of Systems Exam Vitals Vital Signs Date Temp Pulse Resp B/P (MAP) Pulse Ox O2 O2 Flow FiO2 Time Delivery Rate 01/02/19 98.3 98 20 95/54 (68) 100 11:31 01/02/19 Room Air 04:30 Intake and Output 01/01/19 01/01/19 01/02/19 1515:00 23:00 07:00 IntakeIntake Total 1170 ml OutputOutput Total 300 ml BalanceBalance 870 ml Constitutional: alert, oriented, well developed Psych: no complaints, nl mood/affect Head: normocephalic, atraumatic Eyes: nl conjunctiva, EOMI, nl lids, PERRL ENMT: nl external ears & nose, nl lips & teeth, nl nasal mucosa & septum Neck: supple, non-tender Respiratory: clear to auscultation, normal air movement; No congested cough, No crackles/rales, No diminished breath sounds, No intercostal retraction, No labored breathing, No respirations, No tactile fremitus, No wheezing, No other Cardiovascular: regular rate and rhythm, nl pulses; No bruits, No diastolic murmur, No edema, No gallop, No irregular rhythm, No jugular venous distention (JVD), No murmurs/extra sounds, No rub, No systolic murmur, No S3, No S4, No other Gastrointestinal: soft, nl liver, spleen, non-tender; No ascites, No bowel sounds, No distended, No firm, No hepatomegaly, No mass, No rebound or guarding, No splenomegaly, No surgical scars, No tender, No other Musculoskeletal: nl extremities to inspection Extremities: normal pulses; No calf tenderness, No cyanosis, No clubbing, No edema, No pitting pedal edema, No palpable cord, No tenderness, No other Neurological: LAMPS TESTER AND INSPECTOR II-XII intact, nl mental status, nl speech, nl strength Skin: nl turgor Results Results 24hrs Laboratory Tests Test 01/02/19 05:13 White Blood Count 6.9 Red Blood Count 3.03 L Hemoglobin 8.3 L Hematocrit 26.5 L Mean Corpuscular Volume 87.5 Mean Corpuscular Hemoglobin 27.4 L Mean Corpuscular Hemoglobin Concent 31.3 L Red Cell Distribution Width 15.7 H Platelet Count 167 Mean Platelet Volume 9.4 Immature Granulocytes % 0.400 Neutrophils % 67.2 Lymphocytes % 23.4 Monocytes % 7.4 Eosinophils % 1.3 Basophils % 0.3 Nucleated Red Blood Cells % 0.9 H Immature Granulocytes # 0.030 Neutrophils # 4.6 Lymphocytes # 1.6 Monocytes # 0.5 Eosinophils # 0.1 Basophils # 0.0 Nucleated Red Blood Cells # 0.1 H Sodium Level 138 Potassium Level 3.5 Chloride Level 106 Carbon Dioxide Level 27 Anion Gap 5 Blood Urea Nitrogen 8 Creatinine 0.75 Est Glomerular Filtrat Rate mL/min > 60 Glucose Level 97 Calcium Level 8.1 L Medications Medication Current Medications IV Flush (NS 3 ml) 3 ml PER PROTOCOL IV ; Start 12/30/18 at 21:30 Ondansetron HCl (Zofran Inj) 4 mg Q6H PRN IV NAUSEA/VOMITING; Start 12/30/18 at 21:30 Acetaminophen (Tylenol Tab) 650 mg Q6H PRN PO .PAIN 1-3 OR TEMP; Start 12/30/18 at 21:30 Docusate Sodium (Colace) 100 mg Q12H PRN PO .CONSTIPATION; Start 12/30/18 at 21:30 Bisacodyl (Dulcolax) 5 mg DAILY PRN PO .CONSTIPATION; Start 12/30/18 at 21:30 Fish Oil (Fish Oil) 1,000 mg BID PO Last administered on 01/02/19at 08:38; Admin Dose 1,000 MG; Start 12/31/18 at 09:00 KSENIA ALMANZA MD Jan 02, 2019 13:07
[2019-01-02] MEDS ORDERED: FENTAnyl 50 MCG/ML VIAL ONE (13:55)
[2019-01-02] MEDS ORDERED: CEFAZOLIN 1 GM INJ ONE (13:55)
[2019-01-02] MEDS ORDERED: DEXAMETHASONE 4 MG/ML 5 ML INJ ONE (13:55)
[2019-01-02] MEDS ORDERED: PROPOFOL 20 ML ONE (13:55)
[2019-01-02] MEDS ORDERED: SEVOFLURANE 15 MIN ONE (13:55)
[2019-01-02] MEDS ORDERED: MIDAZOLAM 1 MG/ML 2 ML INJ ONE (13:56)
[2019-01-02] MEDS ORDERED: KETOROLAC 30 MG INJ ONE (13:59)
[2019-01-02] MEDS ORDERED: ONDANSETRON 4 MG INJ ONE (13:59)
[2019-01-02] MEDS ORDERED: METOCLOPRAMIDE 10 MG INJ ONE (13:59)
--- NOTE | 2019-01-02 14:09 | PREAC ---
Date/Time of Note Date/Time of Note DATE: 01/02/19 TIME: 14:06 Anesthesia Eval and Record Evaluation Time Pre-Procedure Interview DATE: 01/02/19 TIME: 14:06 Age 38 Sex female NPO: 8 hrs Preoperative diagnosis Vaginal Bleeding Planned procedure Hysteroscopy and endometrial Ablation and D&C Past Medical History Past Medical History: Includes Heme: Anemia : : (2), Para: (2) Surgery & Anesthesia Issues No known issue Meds Anticoagulation: No Beta Ann within 24 hr: No Reason Beta Ann not given: Pt. not on B-Ann Current Medications IV Flush (NS 3 ml) 3 ml PER PROTOCOL IV ; Start 12/30/18 at 21:30 Ondansetron HCl (Zofran Inj) 4 mg Q6H PRN IV NAUSEA/VOMITING; Start 12/30/18 at 21:30 Acetaminophen (Tylenol Tab) 650 mg Q6H PRN PO .PAIN 1-3 OR TEMP; Start 12/30/18 at 21:30 Docusate Sodium (Colace) 100 mg Q12H PRN PO .CONSTIPATION; Start 12/30/18 at 21:30 Bisacodyl (Dulcolax) 5 mg DAILY PRN PO .CONSTIPATION; Start 12/30/18 at 21:30 Fish Oil (Fish Oil) 1,000 mg BID PO Last administered on 01/02/19at 08:38; Admin Dose 1,000 MG; Start 12/31/18 at 09:00 Medroxyprogesterone Acetate (Provera) 40 mg DAILY PO ; Start 01/02/19 at 13:30; Status UNV Meds reviewed: Yes Allergies Coded Allergies: No Known Allergy (Unverified , 12/30/18) Allergies Reviewed: Yes Labs/Studies Labs Reviewed: Reviewed by anesthesiologist Result Diagram: 01/02/19 0513 01/02/19 0513 Laboratory Tests 01/02/19 05:13 test: N/A Studies: ECG (n/a), CXR (n/a) Pre-procedure Exam Last vitals Vital Signs Date Temp Pulse Resp B/P (MAP) Pulse Ox O2 O2 Flow FiO2 Time Delivery Rate 01/02/19 98.3 98 20 95/54 (68) 100 11:31 01/02/19 Room Air 04:30 Airway: Adequate mouth opening, Adequate thyromental dist Mallampati: Mallampati II Teeth: Normal Lung: Normal Heart: Normal ASA Physical Status ASA physical status: 2 Emergency: E Planned Anesthetic General/MAC: LMA Planned Pain Management Parenteral pain med Pre-operative Attestations Prior to commencing anesthesia and surgery, the patient was re-evaluated, there was verification of: *The patient's identity *The results of appropriate recent lab work and preoperative vital signs *The above evaluation not changing prior to induction *Anesthetic plan, risk benefits, alternative and complications discussed with patient/family; questions answered; patient/family understands, accepts and wishes to proceed. DEVON ARANA MD Jan 02, 2019 14:09
--- NOTE | 2019-01-02 14:19 | HPN ---
Date/Time of Note Date/Time of Note DATE: 01/02/19 TIME: 14:17 Interval H&P Admission Note Pt. seen H&P reviewed: No system changes 38 yo with VB currently not actively bleeding She received blood transfusion US thickened Endometrium Patient is NPO HB 8 --->Fertility is not desired -->D&C&Hysteroscopy and possible Endometrial Ablation discussed with patient Alternatives discussed risks and benefits of Alteratives discussed Patient understand the concepts and agrees with the plan LEILA PANCHAL M.D. Jan 02, 2019 14:19
[2019-01-02] MEDS ORDERED: OXYCODONE/ACETAMINOPHEN (5/325) TAB PO PRN (14:30)
[2019-01-02] MEDS ORDERED: HYDROmorphONE 1 MG/5 ML IV SYRINGE IV PRN ×2 (14:30)
[2019-01-02] MEDS ORDERED: EPHEDrine 25 MG/5 ML SYG IV PRN (14:30)
[2019-01-02] MEDS ORDERED: LABETALOL HCL 20MG INJ IV PRN (14:30)
[2019-01-02] MEDS ORDERED: ONDANSETRON 4 MG INJ IV PRN (14:30)
[2019-01-02] MEDS ORDERED: FENTAnyl 50 MCG/ML VIAL IV PRN ×2 (14:30)
[2019-01-02] MEDS ORDERED: METOCLOPRAMIDE 10 MG INJ IV PRN (14:30)
--- NOTE | 2019-01-02 15:12 | PAC ---
Date/Time of Note Date/Time of Note DATE: 01/02/19 TIME: 15:11 Post-Anesthesia Notes Post-Anesthesia Note Last documented vital signs Vital Signs Date Temp Pulse Resp B/P (MAP) Pulse Ox O2 O2 Flow FiO2 Time Delivery Rate 01/02/19 98.3 98 20 95/54 (68) 100 15:11 01/02/19 Room Air 04:30 Activity: WNL Respiratory function: WNL Cardiovascular function: WNL Mental status: Baseline Pain reasonably controlled: Yes Hydration appropriate: Yes Nausea/Vomiting absent: Yes DEVON ARANA MD Jan 02, 2019 15:12
--- NOTE | 2019-01-02 15:14 | OPPN ---
Date/Time of Note Date/Time of Note DATE: 01/02/19 TIME: 15:12 Operative Report Preoperative Diagnosis Thickened Endometrium Severe Anemia +Menorrhagia Postoperative Diagnosis Same Operation/Procedure Performed D&C&Hysteroscopy and Endometrial Ablation Surgeon see signature line mental health assistant none Anesthesia: general Estimated blood loss: 0 - 10 ml's Transfusion Required none Specimen ECC and EMC Frozen Section is benign Grafts/Implants none Complications none LEILA PANCHAL M.D. Jan 02, 2019 15:14
--- NOTE | 2019-01-02 15:21 | QN ---
Documentation Comment Patient is cleared from Soup Mixer Team She needs Follow up with her Youth Officer Any questions,please kindly call the germination testing manager laborist LEILA PANCHAL M.D. Jan 02, 2019 15:21
--- NOTE | 2019-01-02 16:16 | OPR ---
DATE OF OPERATION: 01/02/2019 PREOPERATIVE DIAGNOSES: Menorrhagia, severe anemia. POSTOPERATIVE DIAGNOSES: Menorrhagia, severe anemia. OPERATION PERFORMED: Hysteroscopic hydrothermal endometrial ablation, D and C and hysteroscopy. ATTENDING SURGEON: Dr. Lindsey. ANESTHESIOLOGIST: Dr. Robertson. ANESTHESIA: General. COMPLICATIONS: None. ESTIMATED BLOOD LOSS: Minimal. DESCRIPTION OF PROCEDURE: The patient was taken to the operating room where general anesthesia was f ound to be adequate. The patient was placed in dorsal lithotomy position. After prep and drape, a w eighted speculum was placed inside the vaginal vault. Anterior lip of the cervix was grasped by sing le-tooth tenaculum. Endocervical curette and endometrial curette was done, sent to pathology for the frozen section and then diagnostic hysteroscopy was done. Frozen section came back as benign and th en using the Cell[employer] hydrothermal endometrial ablation system, endometrial ablation was per formed without any complication and successfully. Instruments removed. The patient tolerated the pr ocedure well and was transferred to recovery room in stable condition. There was no complication reg arding this surgery. Dictated By: LEILA LINDSEY MD RG/NTS Conf#: [id number] DID#: [id number] CC: ADOLFO LIMA MD;*End*
--- NOTE | 2019-01-02 16:20 | HP ---
DATE OF ADMISSION: 12/31/2018 HISTORY OF PRESENT ILLNESS: A 38-year-old with menorrhagia and severe anemia. She received 3 units of packed red blood cells and she had a thickened endometrium by ultrasound. PAST MEDICAL HISTORY: Denies. PAST SURGICAL HISTORY: Denies. ALLERGIES: NKDA. PHYSICAL EXAMINATION: VITAL SIGNS: Stable. GENERAL: Normal. ABDOMEN: Not tender, not distended. GENITAL: There was around 1 to 2 mL clots in the vaginal vault. ASSESSMENT AND PLAN: A 38-year-old with menorrhagia and anemia, status post 3 units of packed red bl ood cells was consented for D and C and hysteroscopy and possible endometrial ablation. Risks, benef its and alternatives of procedure were discussed. Risk and benefits of alternatives discussed. The patient signed the consent and was taken to the operating room. Dictated By: LEILA PANCHAL MD RG/NTS Conf#: [id number] DID#: [id number] CC: ADOLFO LIMA MD;*EndCC*
[2019-01-02] MEDS: MEDROXYPROGESTERONE 10 MG TAB PO SCH (17:14)
[2019-01-03 00:38] VITALS: BP 97/64; PULSE 98; RESP 16
[2019-01-03 04:16] VITALS: BP 91/57; PULSE 102; RESP 18
[2019-01-03 07:20] VITALS: BP 94/52; PULSE 98; RESP 16
[2019-01-03] MEDS: MEDROXYPROGESTERONE 10 MG TAB PO SCH (08:46)
[2019-01-03] MEDS: FISH OIL 1,000 MG CAP PO SCH ×2 (08:46→20:14)
[2019-01-03 11:27] VITALS: BP 107/65; PULSE 84; RESP 16
--- NOTE | 2019-01-03 13:02 | CONS ---
Assessment/Plan Assessment/Plan Hospital Course (Demo Recall) IMPRESSION: 1. Tachycardia consistent with sinus tachycardia at this time in the setting of fevers, severe anemia, vaginal bleeding, pain likely etiology.- currently improved s/p transfussions with IVF and treatment of fevers. Echo 12/31 EF 55- 60/MR/TR 2. Abnormal electrocardiogram with nonspecific ST-T abnormalities. 3. Fevers. 4. Anemia. 5. Heavy menses vaginal bleeding. now post-op s/p endometrial D+C 6. Leukocytosis, mild. Recc: -ITele -Follow HR/BP closely -ongoing Corn Cutter eval -s/p abx's. f/u cx data -treat any recurrent fevers -Continue fish oil Consultation Date/Type/Reason Admit Date/Time Dec 31, 2018 at 06:30 Initial Consult Date 12/31/18 Type of Consult Cardiology Reason for Consultation tachycardia Requesting Provider: ADOLFO LIMA Date/Time of Note DATE: 01/03/19 TIME: 12:59 Exam/Review of Systems Vital Signs Vitals Vital Signs Date Temp Pulse Resp B/P (MAP) Pulse Ox O2 O2 Flow FiO2 Time Delivery Rate 01/03/19 98.3 84 16 107/65 98 11:27 (79) 01/02/19 Room Air 16:06 Intake and Output 01/02/19 01/02/19 01/03/19 1515:00 23:00 07:00 IntakeIntake Total 30 ml 640 ml OutputOutput Total 50 ml BalanceBalance 30 ml 590 ml Exam Exam Review of Systems: CONSTITUTIONAL: No fevers, chills. PULMONARY: No sob CARDIOVASCULAR: No chest pain/palpitations GASTROINTESTINAL: No nausea/vomiting. GENITOURINARY: No hematuria/dysuria. MUSCULOSKELETAL: No myagias/arthalgias. PSYCHIATRIC: The patient denies depression. NEUROLOGIC: No weakness Constitutional: alert Psych: no complaints Head: normocephalic ENMT: mucosa pink and moist Neck: supple, jvd (9 cm water) Respiratory: diminished breath sounds (at bases/B) Cardiovascular: regular rate and rhythm Gastrointestinal: soft, non-tender Musculoskeletal: muscle tone (normal) Extremities: edema (none) Neurological: other (No focal deficits) Labs Result Diagram: 01/03/19 0501/03/19525 Results 24hrs Laboratory Tests Test 01/03/19 05:26 White Blood Count 8.2 Red Blood Count 2.90 L Hemoglobin 8.1 L Hematocrit 25.3 L Mean Corpuscular Volume 87.2 Mean Corpuscular Hemoglobin 27.9 L Mean Corpuscular Hemoglobin Concent 32.0 Red Cell Distribution Width 15.1 H Platelet Count 178 Mean Platelet Volume 9.4 Immature Granulocytes % 0.500 H Neutrophils % 62.4 Lymphocytes % 28.3 Monocytes % 7.4 Eosinophils % 1.0 Basophils % 0.4 Nucleated Red Blood Cells % 0.6 H Immature Granulocytes # 0.040 H Neutrophils # 5.1 Lymphocytes # 2.3 Monocytes # 0.6 Eosinophils # 0.1 Basophils # 0.0 Nucleated Red Blood Cells # 0.1 H Sodium Level 137 Potassium Level 3.4 L Chloride Level 105 Carbon Dioxide Level 29 Anion Gap 3 L Blood Urea Nitrogen 10 Creatinine 0.75 Est Glomerular Filtrat Rate mL/min > 60 Glucose Level 116 Calcium Level 8.2 L Medications Medications Current Medications IV Flush (NS 3 ml) 3 ml PER PROTOCOL IV ; Start 12/30/18 at 21:30 Ondansetron HCl (Zofran Inj) 4 mg Q6H PRN IV NAUSEA/VOMITING; Start 12/30/18 at 21:30 Acetaminophen (Tylenol Tab) 650 mg Q6H PRN PO .PAIN 1-3 OR TEMP Last administered on 01/02/19at 18:52; Admin Dose 650 MG; Start 12/30/18 at 21:30 Docusate Sodium (Colace) 100 mg Q12H PRN PO .CONSTIPATION; Start 12/30/18 at 21:30 Bisacodyl (Dulcolax) 5 mg DAILY PRN PO .CONSTIPATION; Start 12/30/18 at 21:30 Fish Oil (Fish Oil) 1,000 mg BID PO Last administered on 01/03/19at 08:46; Admin Dose 1,000 MG; Start 12/31/18 at 09:00 Medroxyprogesterone Acetate (Provera) 40 mg DAILY PO Last administered on 01/03/19at 08:46; Admin Dose 40 MG; Start 01/02/19 at 13:30 REID REYNOLDS Jan 03, 2019 13:02
--- NOTE | 2019-01-03 15:47 | DS ---
Date/Time of Note Date/Time of Note DATE: 01/03/19 TIME: 15:41 Discharge Summary Admission/Discharge Info Admit Date/Time Dec 31, 2018 at 06:30 Discharge Date/Time Discharge Diagnosis 1. Abnormal uterine bleeding, s/p D&C on 01/02/2019, follow up with Dr. Lindsey for pathology 2. Anemia from vaginal bleeding, s/p transfusion, iron supplement, follow up with PCP 3. Cholelithiasis on CT scan, asymptomatic Patient Condition: Stable Hospital Course This is a 38-year-old female with a history of heavy vaginal bleeding over the last 2 months who presented to the emergency department with symptoms of abdominal pain but increased vaginal bleeding. Patient reports that over the last 2 months she started having increased vaginal bleeding. Prior to that her periods had been regular and her bleeding has been normal. She did not seek care for this and was started on OCPs but it has not helped with her bleeding. She also reports a fever that started occurring yesterday. She denies any nausea vomiting or diarrhea. She denies any cough. She did report some burning when she urinates. Denies any chest pain. She has not had a blood transfusion in the past. She also had an vaginal ultrasound at outside hospital and ap parently was told that it was normal. repeated US and a CT scan here reveal thickened and heterogeneous endometrium measuring 2.4 cm could represent blood and blood clots. Patient got D&C done on 01/02/2019 without complication. Patient will follow up with Dr. Lindsey for pathology from the D&C. H/H are 8.1/25.3 today. Patient will be on iron supplement. PROCEDURE: CT abdomen and pelvis without contrast. CLINICAL INDICATION: Hypotension. Vaginal bleeding. TECHNIQUE: CT scan of the abdomen and pelvis without oral contrast was performed and is reconstructed at 2.5 mm contiguous axial intervals from the dome of the diaphragm to the inferior pubic rami.. The patient was scanned without intravenous contrast. Sagittal and coronal reformatted images were obtained from the axial source images. The calculated radiation dose measures 878 mGy centimeters. The CTDI measures 14.2 mGy. Individualized dose optimization technique was used for the performance of this exam. This included 1. Automated exposure control. 2. Adjustment of the mA and / or kV according to the patient's size. 3. Use of iterative reconstructed technique. DICOM images are available. COMPARISON: Pelvic ultrasound earlier same date FINDINGS: The lung bases are clear of any infiltrate or nodule. There are coarse increased interstitial markings in the right lower lobe possibly representing interstitial pneumonia. No effusion is seen. The liver is of normal size, contour and attenuation with no mass or ductal dilatation. a small stone is seen in the neck of the gallbladder.. No splenic, adrenal or pancreatic abnormalities present. Kidneys are of normal size and contour. No hydronephrosis, calculus or mass Is seen. Ureters are of normal course and caliber with no stone. No bladder mass or stone is present. there is hyperdense material within the endometrial canal of a normal appearing uterus likely representing hematometra. Ovaries appear normal. There is no aneurysm. No adenopathy is present. No bowel mass or obstruction is present. The appendix is normal. No phlegmon, ascites or pneumoperitoneum is visualized. The osseous structures are intact. IMPRESSION: Hyperdense material lumen endometrial canal compatible with clot. No mass or adenopathy. Cholelithiasis. Coarse increased interstitial markings right lower lobe. Question viral pneumonitis. .Migel Quispe MD, MD Date Time Electronically viewed and signed by .Migel Quispe MD, MD on 12/31/2018 06:36 This is a 38-year-old female with a history of heavy vaginal bleeding over the last 2 months who presented to the emergency department with symptoms of abdominal pain but increased vaginal bleeding. Patient reports that over the last 2 months she started having increased vaginal bleeding. Prior to that her periods had been regular and her bleeding has been normal. She did not seek care for this and was started on OCPs but it has not helped with her bleeding. She also reports a fever that started occurring yesterday. She denies any nausea vomiting or diarrhea. She denies any cough. She did report some burning when she urinates. Denies any chest pain. She has not had a blood transfusion in the past. She also had an vaginal ultrasound at outside hospital and apparently was told that it was normal. Home Meds Active Scripts Ferrous Sulfate* (Ferrous Sulfate*) 325 Mg Tabec, 325 MG PO BID for 30 Days, TAB Prov:KSENIA ALMANZA MD 01/03/19 Follow-up Plan PCP and Dr. Lindsey in one week Primary Care Provider Care Physician No Primary Pending Labs Laboratory Tests Test 01/03/19 05:26 White Blood Count 8.2 10^3/ul (4.8-10.8) Red Blood Count 2.90 10^6/ul (4.20-5.40) Hemoglobin 8.1 g/dl (12.0-16.0) Hematocrit 25.3 % (37.0-47.0) Mean Corpuscular Volume 87.2 fl (82.0-101.0) Mean Corpuscular Hemoglobin 27.9 pg (29.0-33.0) Mean Corpuscular Hemoglobin Concent 32.0 g/dl (32.0-37.0) Red Cell Distribution Width 15.1 % (11.5-14.5) Platelet Count 178 10^3/UL (140-415) Mean Platelet Volume 9.4 fl (7.4-10.4) Immature Granulocytes % 0.500 % (0.001-0.429) Neutrophils % 62.4 % (39.0-77.0) Lymphocytes % 28.3 % (15.0-51.0) Monocytes % 7.4 % (0.0-11.0) Eosinophils % 1.0 % (0.0-7.0) Basophils % 0.4 % (0.0-2.0) Nucleated Red Blood Cells % 0.6 /100WBC (0.0-0.0) Immature Granulocytes # 0.040 10^3/ul (0.0-0.031) Neutrophils # 5.1 10^3/ul (1.6-7.5) Lymphocytes # 2.3 10^3/ul (0.8-2.9) Monocytes # 0.6 10^3/ul (0.3-0.9) Eosinophils # 0.1 10^3/ul (0.0-0.5) Basophils # 0.0 10^3/ul (0.0-0.1) Nucleated Red Blood Cells # 0.1 10^3/ul (0.0-0.0) Sodium Level 137 mmol/L (135-144) Potassium Level 3.4 mmol/L (3.5-5.1) Chloride Level 105 mmol/L (97-110) Carbon Dioxide Level 29 mmol/L (21-31) Anion Gap 3 (5-13) Blood Urea Nitrogen 10 mg/dl (7-20) Creatinine 0.75 mg/dl (0.44-1.00) Est Glomerular Filtrat Rate mL/min > 60 mL/min (>60) Glucose Level 116 mg/dl (70-220) Calcium Level 8.2 mg/dl (8.4-10.2) KSENIA ALMANZA MD Jan 03, 2019 15:47
[2019-01-03] MEDS ORDERED: POTASSIUM CHLORIDE (SR) 10 MEQ TAB PO ONE (16:00)
[2019-01-03 20:00] VITALS: BP_SYST 104; BP_SYST 91; BP_DIAS 41; BP_DIAS 63; PULSE 101; PULSE 104; RESP 18
[2019-01-03 23:28] VITALS: BP 108/56; PULSE 95; RESP 19
[2019-01-04 03:35] VITALS: BP 101/54; PULSE 96; RESP 18
[2019-01-04 07:08] VITALS: BP 91/50; PULSE 85; RESP 16
[2019-01-04] MEDS: MEDROXYPROGESTERONE 10 MG TAB PO SCH (09:29)
[2019-01-04] MEDS: FISH OIL 1,000 MG CAP PO SCH (09:29)
--- NOTE | 2019-01-04 11:23 | CONS ---
Assessment/Plan Assessment/Plan Hospital Course (Demo Recall) IMPRESSION: 1. Tachycardia consistent with sinus tachycardia at this time in the setting of fevers, severe anemia, vaginal bleeding, pain likely etiology.- currently improved s/p transfussions with IVF and treatment of fevers. Echo 12/31 EF 55- 60/MR/TR 2. Abnormal electrocardiogram with nonspecific ST-T abnormalities. 3. Fevers. 4. Anemia. 5. Heavy menses vaginal bleeding. now post-op s/p endometrial D+C 6. Leukocytosis, mild. Recc: -Tele -Follow HR/BP closely -ongoing Chemical Laboratory Scientist eval s/p D+C -s/p abx's. f/u cx data -treat any recurrent fevers -Continue fish oil Consultation Date/Type/Reason Admit Date/Time Dec 31, 2018 at 06:30 Initial Consult Date 12/31/18 Type of Consult Cardiology Reason for Consultation tachycardia Requesting Provider: ADOLFO LIMA Date/Time of Note DATE: 01/04/19 TIME: 11:22 Exam/Review of Systems Vital Signs Vitals Vital Signs Date Temp Pulse Resp B/P (MAP) Pulse Ox O2 O2 Flow FiO2 Time Delivery Rate 01/04/19 98.4 85 16 91/50 (64) 97 07:08 01/02/19 Room Air 16:06 Intake and Output 01/03/19 01/03/19 01/04/19 1515:00 23:00 07:00 IntakeIntake Total 700 ml 240 ml OutputOutput Total 60 ml BalanceBalance 700 ml 180 ml Exam Exam Review of Systems: CONSTITUTIONAL: No fevers, chills. PULMONARY: No sob CARDIOVASCULAR: No chest pain/palpitations GASTROINTESTINAL: No nausea/vomiting. GENITOURINARY: No hematuria/dysuria. MUSCULOSKELETAL: No myagias/arthalgias. PSYCHIATRIC: The patient denies depression. NEUROLOGIC: No weakness Constitutional: alert Psych: no complaints Head: normocephalic ENMT: mucosa pink and moist Neck: supple, jvd Respiratory: clear to auscultation Cardiovascular: regular rate and rhythm Gastrointestinal: soft, non-tender Musculoskeletal: muscle tone (normal) Extremities: edema (none) Neurological: other (No focal deficits) Labs Result Diagram: 01/03/19 0526 01/03/19 0526 Results 24hrs Laboratory Tests Test 01/04/19 07:31 Lab Scanned Report BLOOD TRANSFUSION Medications Medications Current Medications IV Flush (NS 3 ml) 3 ml PER PROTOCOL IV ; Start 12/30/18 at 21:30 Ondansetron HCl (Zofran Inj) 4 mg Q6H PRN IV NAUSEA/VOMITING; Start 12/30/18 at 21:30 Acetaminophen (Tylenol Tab) 650 mg Q6H PRN PO .PAIN 1-3 OR TEMP Last administered on 01/02/19at 18:52; Admin Dose 650 MG; Start 12/30/18 at 21:30 Docusate Sodium (Colace) 100 mg Q12H PRN PO .CONSTIPATION; Start 12/30/18 at 21:30 Bisacodyl (Dulcolax) 5 mg DAILY PRN PO .CONSTIPATION; Start 12/30/18 at 21:30 Fish Oil (Fish Oil) 1,000 mg BID PO Last administered on 01/04/19at 09:29; Admin Dose 1,000 MG; Start 12/31/18 at 09:00 Medroxyprogesterone Acetate (Provera) 40 mg DAILY PO Last administered on 01/04/19at 09:29; Admin Dose 40 MG; Start 01/02/19 at 13:30 REID REYNOLDS Jan 04, 2019 11:23
[2019-01-04 11:31] VITALS: BP 113/58; PULSE 92; RESP 18
--- NOTE | 2019-01-04 14:59 | DS ---
Date/Time of Note Date/Time of Note DATE: 01/04/19 TIME: 14:58 Discharge Summary Admission/Discharge Info Admit Date/Time Dec 31, 2018 at 06:30 Discharge Date/Time Discharge Diagnosis 1. Abnormal uterine bleeding, s/p D&C on 01/02/2019, follow up with Dr. Lindsey 2. Anemia from vaginal bleeding, s/p transfusion, iron supplement, follow up with PCP 3. Cholelithiasis on CT scan, asymptomatic Patient Condition: Stable Hospital Course This is a 38-year-old female with a history of heavy vaginal bleeding over the last 2 months who presented to the emergency department with symptoms of abdominal pain but increased vaginal bleeding. Patient reports that over the last 2 months she started having increased vaginal bleeding. Prior to that her periods had been regular and her bleeding has been normal. She did not seek care for this and was started on OCPs but it has not helped with her bleeding. She also reports a fever that started occurring yesterday. She denies any nausea vomiting or diarrhea. She denies any cough. She did report some burning when she urinates. Denies any chest pain. She has not had a blood transfusion in the past. She also had an vaginal ultrasound at outside hospital and apparently was told that it was normal. repeated US and a CT scan here reveal thickened and heterogeneous endometrium measuring 2.4 cm could represent blood and blood clots. Patient got D&C done on 01/02/2019 without complication. Pathology no malignancy. Patient will follow up with Dr. Lindsey in office. H/H are 8.1/25.3 today. Patient will be on iron supplement. PROCEDURE: CT abdomen and pelvis without contrast. CLINICAL INDICATION: Hypotension. Vaginal bleeding. TECHNIQUE: CT scan of the abdomen and pelvis without oral contrast was performed and is reconstructed at 2.5 mm contiguous axial intervals from the dome of the diaphragm to the inferior pubic rami.. The patient was scanned without intravenous contrast. Sagittal and coronal reformatted images were obtained from the axial source images. The calculated radiation dose measures 878 mGy centimeters. The CTDI measures 14.2 mGy. Individualized dose optimization technique was used for the performance of this exam. This included 1. Automated exposure control. 2. Adjustment of the mA and / or kV according to the patient's size. 3. Use of iterative reconstructed technique. DICOM images are available. COMPARISON: Pelvic ultrasound earlier same date FINDINGS: The lung bases are clear of any infiltrate or nodule. There are coarse increased interstitial markings in the right lower lobe possibly representing interstitial pneumonia. No effusion is seen. The liver is of normal size, contour and attenuation with no mass or ductal dilatation. a small stone is seen in the neck of the gallbladder.. No splenic, adrenal or pancreatic abnormalities present. Kidneys are of normal size and contour. No hydronephrosis, calculus or mass Is seen. Ureters are of normal course and caliber with no stone. No bladder mass or stone is present. there is hyperdense material within the endometrial canal of a normal appearing uterus likely representing hematometra. Ovaries appear normal. There is no aneurysm. No adenopathy is present. No bowel mass or obstruction is present. The appendix is normal. No phlegmon, ascites or pneumoperitoneum is visualized. The osseous structures are intact. IMPRESSION: Hyperdense material lumen endometrial canal compatible with clot. No mass or adenopathy. Cholelithiasis. Coarse increased interstitial markings right lower lobe. Question viral pneumonitis. .Migel Quispe MD, MD Date Time Electronically viewed and signed by .Migel Quispe MD, MD on 12/31/2018 06:36 This is a 38-year-old female with a history of heavy vaginal bleeding over the last 2 months who presented to the emergency department with symptoms of abdominal pain but increased vaginal bleeding. Patient reports that over the last 2 months she started having increased vaginal bleeding. Prior to that her periods had been regular and her bleeding has been normal. She did not seek care for this and was started on OCPs but it has not helped with her bleeding. She also reports a fever that started occurring yesterday. She denies any nausea vomiting or diarrhea. She denies any cough. She did report some burning when she urinates. Denies any chest pain. She has not had a blood transfusion in the past. She also had an vaginal ultrasound at outside hospital and apparently was told that it was normal. Home Meds Active Scripts Ferrous Sulfate* (Ferrous Sulfate*) 325 Mg Tabec, 325 MG PO BID for 30 Days, TAB Prov:KSENIA ALMANZA MD 01/03/19 Follow-up Plan PCP and Dr. Lindsey in one week Primary Care Provider Care Physician No Primary Pending Labs Laboratory Tests Test 01/04/19 07:31 Lab Scanned Report BLOOD TRANSFUSION KSENIA ALMANZA MD Jan 04, 2019 14:59
== END 2019-01-04 15:50 | disposition home or self-care (01) | DRG 742 ==
LOC: E/R 18:12 → CANRESERV 12-31 00:36 → EDBEDREQSVC 12-31 01:10 → EDBEDREQ 12-31 01:10 → ICU 12-31 06:30 → EDBEDREQSVC 12-31 06:31 → 6WM 01-01 18:00
PROVIDERS: ADMIT Family Medicine; ATTEND Internal Medicine
PROC: 30233N1 Transfusion of Nonautologous Red Blood Cells into Peripheral Vein, Percutaneous Approach (ICD-10-PCS; 2018-12-30)
PROC: 30233N1 Transfusion of Nonautologous Red Blood Cells into Peripheral Vein, Percutaneous Approach (ICD-10-PCS; 2018-12-31)
PROC: 30233N1 Transfusion of Nonautologous Red Blood Cells into Peripheral Vein, Percutaneous Approach (ICD-10-PCS; 2019-01-01)
PROC: 0UDB8ZX Extraction of Endometrium, Via Natural or Artificial Opening Endoscopic, Diagnostic (ICD-10-PCS; 2019-01-02)
PROC: 0U5B8ZZ Destruction of Endometrium, Via Natural or Artificial Opening Endoscopic (ICD-10-PCS; principal; 2019-01-02 14:00)
DX: N92.0 Excessive and frequent menstruation with regular cycle (principal); R65.10 Systemic inflammatory response syndrome (SIRS) of non-infectious origin without acute organ dysfunction; D64.9 Anemia, unspecified; R00.0 Tachycardia, unspecified; E66.9 Obesity, unspecified; Z68.34 Body mass index [BMI] 34.0-34.9, adult
CPT/HCPCS: 36415; 36430; 71045; 74178; 76830; 76856; 80048; 80053; 80061; 80202; 81003; 82728; 83036; 83540; 83605; 83735; 84443; 84484; 84703; 85025; 85610; 85730; 86850; 86900; 86901; 86920; 88305; 88331; 93005; 93306; J0690; J1100; J1170; J1885; J2060; J2250; J2405; J2543; J2765; J3010; J3370; J3475; J7030; J7040; P9016